=== PATIENT | male | born 1925 | race Native Hawaiian/Other Pacific Islander ===

== ENCOUNTER 2017-04-19 07:42 | Outpatient (CLI) | payer OTHER ==
[~2017-04-19 07:42] MED LIST: ASA LO-DOSE81 MG; HYDR25TA15 PO; METOPROL TAR100 MG; TAMS0.4C; TRIAMCINOLON0.13 EX; VALS160T; VITAMIN D1000 UNI1
[2017-04-19 09:12] LABS: PLATELET COUNT 176 K/uL (142-355)
[2017-04-19 17:37] LABS: POTASSIUM 4.2 mmol/L (3.6-5.2); SODIUM 138 mmol/L (136-145)
== END 2017-04-19 19:41 | disposition home or self-care (01) ==
LOC: LABW 07:42
PROVIDERS: Internal Medicine
DX: I10 Essential (primary) hypertension (principal)
CPT/HCPCS: 36415; 80053; 80061; 81000; 84439; 84443; 85027

== ENCOUNTER 2017-05-21 12:10 | Emergency (ER) | payer OTHER ==
[~2017-05-21] VITALS: Ht 152.4 cm; Wt 90.7 kg
[2017-05-21 12:18] VITALS: BP 128/67; TEMP 97.6
== END 2017-05-21 13:28 | disposition home or self-care (01) ==
LOC: ED 12:10
DX: S20.212A Contusion of left front wall of thorax, initial encounter (principal); R00.1 Bradycardia, unspecified; I44.7 Left bundle-branch block, unspecified; W01.198A Fall on same level from slipping, tripping and stumbling with subsequent striking against other object, initial encounter; Y92.098 Other place in other non-institutional residence as the place of occurrence of the external cause
CPT/HCPCS: 93005; 99283